=== PATIENT | male | born 1965 | race Caucasian/White ===

== ENCOUNTER 2023-01-02 18:58 | Emergency (ER) | payer OTHER ==
[2023-01-02] MEDS ORDERED: MORPHINE 4 MG/ML SYR ONE (20:24)
[2023-01-02] MEDS ORDERED: NA CHLORIDE 0.9% 1,000 ML ONE (20:24)
[2023-01-02 20:45] LABS: Absolute Lymphocytes (CBC) 1.4 K/uL (0.7-4.9); Hematocrit 45.9 % (39.6-49.0); Lymphocytes % 14.3 % (15.3-44.8); MCV 95.3 fL (80-100); MPV 7.4 fL (7.6-11.3); Platelets 301 thou/uL (152-406); RBC Red Blood Cell Count 4.81 M/uL (4.33-5.43)
[2023-01-02 20:55] LABS: Albumin 3.8 g/dL (3.4-5.0); Bilirubin Direct 0.2 mg/dL (0-0.2); Bilirubin Indirect, Calculated 0.2 mg/dL (0.2-0.8); Bilirubin Total 0.4 mg/dL (0.2-1.0); Potassium 4.6 mEq/L (3.5-5.1); Protein, Total 9.3 g/dL (6.4-8.2)
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
[2023-01-02] MEDS ORDERED: METOCLOPRAMIDE 10 MG/2mL INJ ONE (23:07)
[2023-01-02] MEDS ORDERED: DIPHENHYDRAMINE 50 MG/ML VIAL ONE (23:07)
[2023-01-03 00:13] VITALS: BP 117/74; O2SAT 99
== END 2023-01-02 23:47 | disposition home or self-care (01) ==
LOC: ER 18:58
DX: S20.221A Contusion of right back wall of thorax, initial encounter (principal); S00.83XA Contusion of other part of head, initial encounter; S00.81XA Abrasion of other part of head, initial encounter; V59.49XA Driver of pick-up truck or van injured in collision with other motor vehicles in traffic accident, initial encounter; Z85.05 Personal history of malignant neoplasm of liver
CPT/HCPCS: 85025; 80048; 36415; 86900; 86850; 86901; 80076; 70450; 72125; 71260; 74177; 96375; 96372; 96374; 99285; Q9967; J2765; J1200; J7030